=== PATIENT | female | born 1995 | race Caucasian/White ===

== ENCOUNTER → 2020-05-02 | Outpatient (CLI) | payer BC ==
[2020-05-02 11:48] LABS: Creatinine Urine 88.1 mg/dL (27.00-270.00); Protein, Urine Quantitative 198.5 mg/dL (0.0-11.9)
== END | disposition home or self-care (01) ==
LOC: OLS 10:43 → LAB SHORT 10:43 → LAB FUT 05-01 11:10
PROVIDERS: Naturopath
DX: N28.9 Disorder of kidney and ureter, unspecified (principal); R80.9 Proteinuria, unspecified; R94.4 Abnormal results of kidney function studies
CPT/HCPCS: 81050; 82570; 84156

== ENCOUNTER → 2023-08-22 | Outpatient (CLI) | payer OTHER | END | disposition home or self-care (01) | LOC: LAB SHORT 09:35 → LAB 09:35 | DX: N39.0 Urinary tract infection, site not specified (principal) | CPT/HCPCS: 87077; 87086; 87186 ==

== ENCOUNTER 2025-05-12 08:17 | Inpatient (IN) | payer OTHER | END 2025-05-16 16:11 | disposition home or self-care (01) | DRG 683 | LOC: ER 08:17 → MEDS 10:18 | PROVIDERS: ADMIT Family Medicine | PROC: 3E0330M Introduction of Antineoplastic, Monoclonal Antibody, into Peripheral Vein, Percutaneous Approach (ICD-10-PCS; principal; 2025-05-15) | DX: N17.9 Acute kidney failure, unspecified (principal); E87.20 Acidosis, unspecified; Z68.42 Body mass index [BMI] 45.0-49.9, adult; N02.B9 Other recurrent and persistent immunoglobulin A nephropathy; E66.9 Obesity, unspecified; I10 Essential (primary) hypertension; G93.2 Benign intracranial hypertension; F41.8 Other specified anxiety disorders; D63.1 Anemia in chronic kidney disease; D69.6 Thrombocytopenia, unspecified; N25.81 Secondary hyperparathyroidism of renal origin; E86.9 Volume depletion, unspecified; E88.09 Other disorders of plasma-protein metabolism, not elsewhere classified; N18.5 Chronic kidney disease, stage 5; E87.70 Fluid overload, unspecified; R60.0 Localized edema; D72.829 Elevated white blood cell count, unspecified ==

== ENCOUNTER → 2025-05-23 | Outpatient (CLI) | payer OTHER ==
[~2025-05-23] MED LIST: ACET250 PO; BUME2 PO; BUPR150ER PO; CALCIUM 600-VI1 EAC6 PO; CATAPRES-TTS 11 EAC1 PO; CATAPRES0.1 MG PO; FISH OIL 1,0001 EA10 PO; FOLI1 PO; LEVSOD25 PO; LOSA25 PO; MULVITA PO; NYSTRIT TOP; OMEGA-3 FISH O1 EAC6 PO; PRED20 PO; PROP10 PO; SERT100 PO; SODBIC650 PO; SULFAMETHOXAZO1 EACH PO; VITAMIN D350 MC3 PO; [UNRECOGNIZED DRUG - CODE] PO
[2025-05-23 13:10] LABS: Protein, Urine Quantitative 130.9 mg/dL (0.0-11.9)
[2025-05-23 13:14] LABS: Microalbumin, Urine Quant. 1130.0 mg/L (0.000-20.000)
== END | disposition home or self-care (01) ==
LOC: LAB SHORT 08:24 → LAB 08:24 → LAB FUT 05-21 08:20
PROVIDERS: Internal Medicine Nephrology
DX: N18.30 Chronic kidney disease, stage 3 unspecified (principal); D63.1 Anemia in chronic kidney disease; N25.81 Secondary hyperparathyroidism of renal origin; E55.9 Vitamin D deficiency, unspecified; R94.5 Abnormal results of liver function studies; R94.6 Abnormal results of thyroid function studies; R76.9 Abnormal immunological finding in serum, unspecified
CPT/HCPCS: 81050; 82043; 82570; 84156